=== PATIENT | male | born 1935 | race Caucasian/White ===

== ENCOUNTER 2020-04-28 13:07 | Outpatient (REF) | payer OTHER, MEDICARE, SELFPAY ==
--- NOTE | 2020-04-28 13:32 | XR_ITS ---
EXAMINATION: XR HIP, LEFT CLINICAL INFORMATION: Pain left hip COMPARISON: None TECHNIQUE: AP view of the pelvis is performed along with AP and frog-lateral projections left hip. FINDINGS: There is no fracture or dislocation or destructive process. Degenerative changes involve the lower lumbar spine with disc narrowing and vertebral spurring L3-S1. There are degenerative changes in the SI joints. The pubis and right hip are unremarkable. The left hip shows no joint narrowing or erosive change or chondrocalcinosis. No significant spurring trochanters. XR/XR hip LT w [id number] IMPRESSION: 1. Degenerative changes lumbosacral spine. 2. Unremarkable left hip.
== END 2020-04-28 13:08 | disposition home or self-care (01) ==
LOC: HO.XRAY 13:07
PROVIDERS: PCP Internal Medicine; Visit Provider Nurse Practitioner Family
DX: M25.552 Pain in left hip (principal)
CPT/HCPCS: 73502